=== PATIENT | female | born 1965 | race Caucasian/White ===

== ENCOUNTER → 2017-02-20 | Outpatient (CLI) | payer OTHER ==
[~2017-02-20] MED LIST: ALLEGRA ALLERG180 MG PO; COLACE 100MG C100 MG PO; FLONASE ALLER15.8 ML; NORCO 7.5-3251 EACH PO; SIMETHICONE80 MG PO
== END ==
LOC: MAMO 09:13
DX: R92.8 Other abnormal and inconclusive findings on diagnostic imaging of breast (principal); Z78.0 Asymptomatic menopausal state
CPT/HCPCS: G0206

== ENCOUNTER → 2017-07-23 | Day surgery (SDC) | payer OTHER | END | disposition home or self-care (01) | LOC: OR 07:29 | PROVIDERS: Internal Medicine Gastroenterology | PROC: 0DC98ZZ Extirpation of Matter from Duodenum, Via Natural or Artificial Opening Endoscopic (ICD-10-PCS; principal; 2017-07-23 10:00) | DX: K91.89 Other postprocedural complications and disorders of digestive system (principal); T18.3XXA Foreign body in small intestine, initial encounter; E66.9 Obesity, unspecified; K83.1 Obstruction of bile duct; Z68.30 Body mass index [BMI] 30.0-30.9, adult; Z88.8 Allergy status to other drugs, medicaments and biological substances; Z88.0 Allergy status to penicillin; Z87.891 Personal history of nicotine dependence; Z79.899 Other long term (current) drug therapy; Z87.19 Personal history of other diseases of the digestive system | CPT/HCPCS: J2250; J3010; J7030 ==

== ENCOUNTER → 2020-11-26 | Outpatient (CLI) | payer OTHER, SELFPAY ==
[2020-11-26 10:26] LABS: BUN/CREATININE RATIO 22 (0-10)
== END ==
LOC: LAB 09:47
PROVIDERS: Nurse Practitioner Family
DX: E11.9 Type 2 diabetes mellitus without complications (principal)
CPT/HCPCS: 36415; 80053; 83036

== ENCOUNTER → 2021-05-28 | Outpatient (CLI) | payer OTHER ==
[2021-05-28 12:18] LABS: HEMOGLOBIN 14.2 gm/dl (12.3-15.3); RED BLOOD COUNT 4.93 M/UL (4.00-5.10); WHITE BLOOD COUNT 5.2 K/UL (4.5-11.0)
[2021-05-28 12:47] LABS: BUN/CREATININE RATIO 30 (0-10)
[2021-05-29 18:12] LABS: THYROGLOBULIN ANTIBODY <1.0 IU/mL (0.0-0.9); THYROGLOBULIN BY IMA <0.1 ng/mL (1.5-38.5)
== END ==
LOC: LAB 10:22
PROVIDERS: Internal Medicine; Nurse Practitioner Family
DX: C73 Malignant neoplasm of thyroid gland (principal); E11.9 Type 2 diabetes mellitus without complications
CPT/HCPCS: 36415; 80053; 80061; 82570; 82607; 84156; 84439; 84443; 85025; 86800

== ENCOUNTER → 2021-12-01 | Outpatient (CLI) | payer OTHER ==
[2021-12-01 17:12] LABS: RED BLOOD COUNT 5.2 M/UL (4.00-5.10); WHITE BLOOD COUNT 5.6 K/UL (4.5-11.0)
== END ==
LOC: LAB 16:36
PROVIDERS: Nurse Practitioner Family
DX: E78.5 Hyperlipidemia, unspecified (principal); E03.9 Hypothyroidism, unspecified; E11.9 Type 2 diabetes mellitus without complications; E55.9 Vitamin D deficiency, unspecified
CPT/HCPCS: 80053; 80061; 82607; 83036; 84439; 84443; 85025

== ENCOUNTER → 2021-12-02 | Outpatient (CLI) | payer OTHER | LOC: LAB 13:38 | DX: E78.5 Hyperlipidemia, unspecified (principal); E03.9 Hypothyroidism, unspecified; E11.9 Type 2 diabetes mellitus without complications; E55.9 Vitamin D deficiency, unspecified | CPT/HCPCS: 82570; 84156 ==

== ENCOUNTER → 2022-04-14 | Outpatient (CLI) | payer OTHER | LOC: LAB 08:26 | DX: R74.8 Abnormal levels of other serum enzymes (principal) | CPT/HCPCS: 36415; 80076 ==

== ENCOUNTER → 2022-06-06 | Outpatient (CLI) | payer OTHER ==
[2022-06-06 15:54] LABS: HEMOGLOBIN 14.3 gm/dl (12.3-15.3); RED BLOOD COUNT 5.02 M/UL (4.00-5.10); WHITE BLOOD COUNT 5.2 K/UL (4.5-11.0)
[2022-06-06 16:27] LABS: BUN/CREATININE RATIO 28 (0-10)
== END ==
LOC: LAB 14:58
PROVIDERS: Nurse Practitioner Family
DX: E11.9 Type 2 diabetes mellitus without complications (principal); E78.5 Hyperlipidemia, unspecified; R94.4 Abnormal results of kidney function studies; E55.9 Vitamin D deficiency, unspecified
CPT/HCPCS: 36415; 80053; 80061; 82570; 82607; 83036; 84156; 85025

== ENCOUNTER → 2022-06-26 | Outpatient (CLI) | payer OTHER ==
[2022-06-27 18:12] LABS: THYROGLOBULIN ANTIBODY <1.0 IU/mL (0.0-0.9); THYROGLOBULIN BY IMA <0.1 ng/mL (1.5-38.5)
== END ==
LOC: LAB 09:16
PROVIDERS: Internal Medicine
DX: C73 Malignant neoplasm of thyroid gland (principal)
CPT/HCPCS: 36415; 84443; 86800